=== PATIENT | male | born 1960 | race Caucasian/White ===

== ENCOUNTER 2020-10-30 14:20 | Emergency (ER) | payer OTHER ==
[2020-10-30 15:21] LABS: BILIRUBIN NEGATIVE (NEGATIVE); BLOOD NEGATIVE Ery/uL (NEGATIVE); CLARITY CLEAR (CLEAR); COLOR YELLOW (YELLOW); GLUCOSE (U) NORMAL (NORMAL); LEUKOCYTES NEGATIVE Leu/uL (NEGATIVE); NITRITE NEGATIVE (NEGATIVE); PROTEIN NEGATIVE (NEGATIVE); SPECIFIC GRAVITY 1.025 (1.001-1.030); UROBILINOGEN 0.2 mg/dL (0.2-1.0)
[2020-10-30 15:46] LABS: BASOPHIL 0.7 % (0-2); HCT 51.9 % (42.0-52.0); HGB 17.8 g/dl (13.2-18.0); LYMPHOCYTE 18.3 % (15-48); MCH 34.5 pg (25.0-31.0); MCHC 34.3 g/dL (32.0-36.0); MCV 100.6 fL (78.0-100.0); MONOCYTE 6.9 % (0-12); MPV 11.6 fL (6.0-9.5); NEUTROPHIL 71.7 % (41-80); NRBC 0; PLT 145 K/uL (150-400); RBC 5.16 M/uL (4.70-6.00); RDW 12.9 % (11.5-14.0); WBC 7.5 K/uL (4.0-10.5)
[2020-10-30 16:07] LABS: ALBUMIN 3.7 g/dL (3.4-5.0); BILIRUBIN - TOTAL 0.7 mg/dL (0.2-1.0); BUN/CREAT RATIO (CALC) 11.1 RATIO; CREATININE 0.72 mg/dL (0.67-1.17); GLOBULIN (CALCULATION) 4.3 g/dL; POTASSIUM 3.7 mmol/L (3.5-5.1)
[2020-10-31] MEDS ORDERED: ONDANSETRON ODT4 MG SL (05:47)
[2020-10-31] MEDS ORDERED: CYCLOBENZAPRINE10 MG PO (05:47)
[2020-10-31] MEDS ORDERED: MEDROL 4MG DOSEP4 MG PO (05:47)
[2020-10-31] MEDS ORDERED: BENTYL10 MG PO (05:47)
== END 2020-10-30 16:40 | disposition home or self-care (01) ==
LOC: FER 14:20
PROVIDERS: Emergency Medicine
DX: R41.3 Other amnesia (principal); R03.0 Elevated blood-pressure reading, without diagnosis of hypertension; G31.9 Degenerative disease of nervous system, unspecified; F17.210 Nicotine dependence, cigarettes, uncomplicated
CPT/HCPCS: 36415; 70450; 71046; 80053; 81003; 85025; 93005

== ENCOUNTER 2020-10-31 00:16 | Emergency (ER) | payer OTHER ==
[2020-10-31 01:46] LABS: ALBUMIN 3.8 g/dL (3.4-5.0); ALKALINE PHOSHATASE 110 U/L (46-116); ALT 55 U/L (16-63); AST 63 U/L (15-37); BUN 7 mg/dL (7-18); BUN/CREAT RATIO (CALC) 9.6 RATIO; CHLORIDE 100 mmol/L (98-107); CO2 (BICARBONATE) 27 mmol/L (21-32); CREATININE 0.73 mg/dL (0.67-1.17); GLUCOSE 121 mg/dL (74-106); LIPASE 226 U/L (73-393); TOTAL PROTEIN 7.8 g/dL (6.4-8.2)
[2020-10-31 01:52] LABS: LACTIC ACID 1.7 mmol/L (0.4-1.9)
[2020-10-31 02:24] LABS: BASOPHIL 0.5 % (0-2); EOSINOPHIL 1.8 % (0-5); HCT 53.3 % (42.0-52.0); HGB 18.3 g/dl (13.2-18.0); LYMPHOCYTE 16.8 % (15-48); MCH 34.5 pg (25.0-31.0); MCHC 34.3 g/dL (32.0-36.0); MCV 100.4 fL (78.0-100.0); MONOCYTE 7.4 % (0-12); MPV 12.1 fL (6.0-9.5); NRBC 0; RBC 5.31 M/uL (4.70-6.00); WBC 7.7 K/uL (4.0-10.5)
[2020-10-31 02:34] LABS: PLT 128 K/uL (150-400)
[2020-10-31 03:11] LABS: BILIRUBIN NEGATIVE (NEGATIVE); BLOOD NEGATIVE Ery/uL (NEGATIVE); CLARITY CLEAR (CLEAR); COLOR YELLOW (YELLOW); GLUCOSE (U) NORMAL (NORMAL); LEUKOCYTES NEGATIVE Leu/uL (NEGATIVE); NITRITE NEGATIVE (NEGATIVE); PROTEIN NEGATIVE (NEGATIVE); UROBILINOGEN 0.2 mg/dL (0.2-1.0); pH 7.5 (5.0-9.0)
[2020-10-31 03:16] LABS: AMPHETAMINES NEGATIVE (NEGATIVE); BARBITURATES NEGATIVE (NEGATIVE); ECSTASY (MDMA) NEGATIVE (NEGATIVE); MARIJUANA (THC) NEGATIVE (NEGATIVE); METHADONE NEGATIVE (NEGATIVE); OPIATES POSITIVE (NEGATIVE); OXYCODONE NEGATIVE (NEGATIVE)
[2020-10-31 03:33] LABS: CORONAVIRUS 2019 SARS-COV-2 NEGATIVE (NEGATIVE); INFLUENZA A NAA NEGATIVE (NEGATIVE)
[2020-10-31] MEDS ORDERED: ONDANSETRON ODT4 MG SL (05:47)
[2020-10-31] MEDS ORDERED: CYCLOBENZAPRINE10 MG PO (05:47)
[2020-10-31] MEDS ORDERED: BENTYL10 MG PO (05:47)
[2020-10-31] MEDS ORDERED: MEDROL 4MG DOSEP4 MG PO (05:47)
== END 2020-10-31 06:05 | disposition home or self-care (01) ==
LOC: FER 00:16
PROVIDERS: Emergency Medicine Emergency Medical Services
DX: R10.84 Generalized abdominal pain (principal); R11.2 Nausea with vomiting, unspecified; M62.830 Muscle spasm of back; F17.210 Nicotine dependence, cigarettes, uncomplicated; Z20.822 Contact with and (suspected) exposure to COVID-19
CPT/HCPCS: 36415; 80053; 80305; 81003; 83605; 83690; 85025; 96372; G0480; J1885; J2270; J2405; J7120; Q9967; U0002